=== PATIENT | female | born 1990 | race Caucasian/White ===

== ENCOUNTER 2018-12-13 00:31 | Emergency (ER) | payer SELFPAY ==
[~2018-12-13] VITALS: Ht 167.6 cm; Wt 75.3 kg
--- NOTE | 2018-12-13 00:55 | NUR ---
PT PRESENTED TO THE ER WITH A C/O VAGINAL BLEEDING. PT STATED THAT SHE IS AND HER LMP WAS 09/2018
[2018-12-13 01:13] LABS: BASOPHILS % (AUTO) 0.5 % (0.0-2.0); EOSINOPHILS % (AUTO) 1.3 % (0.0-6.0); HEMATOCRIT 32 % (33-45); HEMOGLOBIN 10.7 g/dL (11.5-14.8); LYMPHOCYTES # (AUTO) 1.3 /CMM (0.8-4.8); LYMPHOCYTES % (AUTO) 15.6 % (20.0-44.0); MEAN CORPUSCULAR HGB CONC 33 g/dl (31.0-36.0); MEAN CORPUSCULAR VOLUME 85 fL (82-100); MONOCYTES # (AUTO) 0.5 /CMM (0.1-1.30); MONOCYTES % (AUTO) 5.9 % (2.0-12.0); NEUTROPHILS # (AUTO) 6.6 /CMM (1.8-8.9); NEUTROPHILS % (AUTO) 76.7 % (43.0-81.0); PLATELET COUNT (AUTO) 315 /CMM (150-450); RED BLOOD CELL COUNT(AUTO) 3.82 MIL/uL (4.0-5.2); WHITE BLOOD COUNT (AUTO) 8.6 K/uL (4.3-11.0)
[2018-12-13 01:20] LABS: CALCIUM, SERUM 8.5 mg/dL (8.5-10.1); CARBON DIOXIDE 22 mmol/L (21-32); CHLORIDE 104 mmol/L (98-107); CREATININE 0.5 mg/dL (0.6-1.3); GLUCOSE 101 mg/dL (74-106); POTASSIUM 3.5 mmol/L (3.5-5.1); SODIUM SERUM 140 mmol/L (136-145); UREA NITROGEN, BLOOD 9 mg/dL (7-18)
[2018-12-13 01:48] LABS: ALCOHOL, BLOOD < 3 mg/dL (0-0)
[2018-12-13] MEDS ORDERED: ACETAMINOPHEN ES 500 MG TABLET ONE (01:58)
[2018-12-13] MEDS ORDERED: ACETAMINOPHEN ES 500 MG TABLET PO ONE (02:00)
--- NOTE | 2018-12-13 02:02 | NUR ---
PT REC'D TYLENOL ORDERED. PT IS INTERMITTENTLY CRYING/MOANING. PT IS ON THE MONITOR AND CONTINUOUS PULSE OX.
[2018-12-13 02:05] LABS: APPEARANCE,URINE CLOUDY (CLEAR); BILIRUBIN,URINE 1+ (NEGATIVE); BLOOD, URINE 3+ Ery/uL (NEGATIVE); COLOR,URINE YELLOW (YELLOW); KETONES,URINE 1+ (NEGATIVE); LEUKOCYTE ESTERASE ,URINE NEGATIVE (NEGATIVE); NITRITE, URINE NEGATIVE (NEGATIVE); PH,URINE 5.5 (5.0-8.0); PROTEIN,URINE 1+ mg/dl (NEGATIVE); UGLUCOSE NEGATIVE (NEGATIVE); UROBILINOGEN,URINE 0.2 EU/dL (0.2)
[2018-12-13 02:10] LABS: BACTERIA,URINE Few /HPF (None Seen); RBC,URINE TOO NUMEROUS TO COUN /HPF (0-2); SQUAMOUS EPITHELIAL CELL,UR Few /HPF (None Seen)
--- NOTE | 2018-12-13 02:16 | NUR ---
US TECH, IS AT THE BEDSIDE.
--- NOTE | 2018-12-13 02:20 | NUR ---
PT AMBULATED TO THE BATHROOM TO EMPTY HER BLADDER FOR US. PT CALLED ME INTO THE BATHROOM. LARGE BLOOD CLOT NOTED IN TOILET. BLOOD CLOT REMOVED AND SHOW TO .
--- NOTE | 2018-12-13 02:25 | NUR ---
VAGINAL US STARTED. Female hearing therapist accompanied female patient for US KEITH BENITEZ.
--- NOTE | 2018-12-13 02:41 | NUR ---
US FINISHED. DR SOLIS IS AT THE BEDSIDE SPEAKING TO THE PT.
[2018-12-13 02:50] VITALS: BP 125/74
== END 2018-12-13 02:53 | disposition home or self-care (01) ==
LOC: ER 00:34
DX: O20.0 Threatened abortion (principal); F15.10 Other stimulant abuse, uncomplicated
CPT/HCPCS: 36415; 76856-TC; 80048-TC; 80305; 81000-TC; 84702-TC; 85025-TC; 86850-TC; G0480

== ENCOUNTER 2019-03-05 00:31 | Emergency (ER) | payer SELFPAY ==
--- NOTE | 2019-03-05 01:56 | NUR ---
CALLED PT IN WAITING ROOM. NO RESPONSE.
--- NOTE | 2019-03-05 02:47 | NUR ---
CALLED PT NAME X3 IN WR. PER ADMITTING PT LEFT
== END 2019-03-05 02:48 | disposition left against medical advice (07) ==
LOC: ER 00:40
DX: Z53.21 Procedure and treatment not carried out due to patient leaving prior to being seen by health care provider (principal)